=== PATIENT | female | born 1980 | race American Indian/Alaskan Native ===

== ENCOUNTER 2018-03-16 06:36 | Emergency (ER) | payer SELFPAY ==
[2018-03-16 07:27] VITALS: BP 149/100
--- NOTE | 2018-03-16 08:13 | Emergency Department Report ---
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 Pain is 4-10 and worse with swallowing. Denies any drooling. Blood pressure is 149/100 without any history of hypertension. She does have a history of asthma. Denies any nausea or vomiting. Reports some fever and she took [id number] cough and cold without any relief. Denies any chest pain or shortness of breath. Denies any earache or headache. Denies any abdominal pain. Last menstrual period was . She has drainage to the back of her throat that she says is worse when she lays down and she coughs a lot at night when she lays down. ED Review of Systems ROS: Stated complaint: SORE THROAT Other details as noted in HPI Constitutional: chills, fever Eyes: denies: eye pain, eye discharge ENT: throat pain, congestion. denies: ear pain, dental pain Respiratory: cough. denies: shortness of breath, SOB with exertion, SOB at rest , stridor, wheezing Cardiovascular: denies: chest pain, palpitations, edema, syncope Gastrointestinal: denies: abdominal pain, nausea, vomiting, diarrhea Genitourinary: denies: urgency, dysuria, frequency, hematuria, discharge Musculoskeletal: denies: back pain, joint swelling, arthralgia Skin: denies: rash, lesions Neurological: denies: headache, weakness, paresthesias ED Past Medical Hx - Past Medical History Previous Medical History?: Yes Hx Asthma: Yes - Surgical History Past Surgical History?: No Additional Surgical History: CS - Family History Family history: hypertension - Social History Smoking Status: Never Smoker Substance Use Type: None - Medications Home Medications: Home Medications Medication Instructions Recorded Confirmed Last Taken Type Azithromycin [Zithromax Z-JAUN] 250 mg PO DAILY #6 tablet 10/19/14 Unknown Rx predniSONE [Prednisone] 40 mg PO DAILY #10 tablet 10/19/14 Unknown Rx Albuterol Sulfate [Ventolin HFA] 2 puff IH Q4H PRN #1 hfa.aer.ad 01/29/15 Unknown Rx Cetirizine HCl [Allergy Relief] 10 mg PO DAILY #60 tablet 01/29/15 Unknown Rx Fluticasone [Flonase] 1 spray NS QDAY #1 bottle 01/29/15 Unknown Rx Prednisone [predniSONE 10 mg 10 mg PO .TAPER #1 tab.ds.pk 01/29/15 Unknown Rx (6-Day Pack, 21 Tabs)] Amoxicillin [Amoxicillin TAB] 875 mg PO BID 10 Days #20 tablet 03/16/18 Unknown Rx Cetirizine HCl [ZyrTEC] 10 mg PO QAM 14 Days #14 capsule 03/16/18 Unknown Rx Fluticasone [Flonase] 1 spray NS QDAY 14 Days #1 bottle 03/16/18 Unknown Rx Ibuprofen [Motrin] 600 mg PO Q8H PRN #12 tablet 03/16/18 Unknown Rx Minor Respiratory Exam - Exam General: Vital signs noted. No distress. Alert and acting appropriately. This is a 37-year-old female well-nourished well-developed in no acute distress HEENT: Yes Moist Mucous Membranes, Yes Rhinorrhea (nasal congestion and pale boggy mucosa), No Pharyngeal Erythema (no pharyngeal exudate or erythema.), No Pharyngeal Exudates (uvula is midline and oral airways patent.), No Conjuctival Injection, No Frontal Tenderness, No Maxillary Tenderness Ear: Neither TM Bulge (bilateral TM congested without erythema), Neither TM Erythema, Neither EAC Pain, Neither EAC Discharge Neck: Yes Supple (full range of motion. Supple), No Adenopathy Lungs: Yes Good Air Exchange (clear to auscultation bilaterally.), Yes Cough ( dry cough), No Wheezes, No Ronchi, No Stridor, No Labored Respirations, No Retractions, No Use of Accessory Muscles, No Other Abnormal Lung Sounds Heart: Yes Regular, No Murmur Abdomen: Yes Normal Bowel Sounds, No Tenderness (nontender the palpation in all quadrants), No Peritoneal Signs Skin: No Rash, No Edema Neurologic: Alert and oriented 3, GCS of 15, almost gait Musculoskeletal: Unremarkable. No cce. + 2 pulses in all extremities, no neurovascular compromise ED Course Vital Signs 03/16/18 07:23 Temperature 99 F Pulse Rate 94 H Respiratory 18 Rate Blood Pressure 149/100 O2 Sat by Pulse 99 Oximetry - Reevaluation(s) Reevaluation #1: 03/16/18 08:14 She given Motrin 800 mg emergency room to manage low-grade fever and sore throat. ED Medical Decision Making - Medical Decision Making This is a 37-year-old female here report that she is having sore throats that started 3 days ago but was preceded by upper respiratory infection to include nasal congestion and runny nose. Patient has a history of asthma. Assessment/plan rhinitis: Patient will be sent home in Zyrtec and Flonase Sinusitis-patient will be sent home on amoxicillin Pharyngitis-Motrin 800 mg by mouth in emergency room and will be sent home and Motrin. Pain is better elevated blood pressure with no history of hypertension-encouraged to keep a log of her blood pressure and take to PCP visit with her Patient discharged home in stable condition with prescription for Zyrtec, Flonase and amoxicillin. She was also given Motrin for fever or sore throat. I discussed with her that she is to follow-up with her primary care physician in 2-3 days if she does not have a primary care to follow up with outside Medical Center. Patient blood pressure is 149/100 and she says she does not have a history of high blood pressure but she does have a family history side told her to keep a record of her blood pressure and take to primary care visit with her for evaluation and she agrees. Discharged home in stable condition. Sore throat is better Critical care attestation.: If time is entered above; I have spent that time in minutes in the direct care of this critically ill patient, excluding procedure time. ED Disposition Clinical Impression: Elevated blood-pressure reading without diagnosis of hypertension Sinusitis Qualifiers: Sinusitis location: unspecified location Chronicity: unspecified Qualified Code (s): J32.9 - Chronic sinusitis, unspecified Rhinitis Qualifiers: Rhinitis type: unspecified Qualified Code(s): J31.0 - Chronic rhinitis Pharyngitis Qualifiers: Pharyngitis/tonsillitis etiology: unspecified etiology Qualified Code(s): J02.9 - Acute pharyngitis, unspecified Disposition: DC-01 TO HOME OR SELFCARE Is pt being admited?: No Does the pt Need Aspirin: No Condition: Stable Instructions: Sinusitis (ED), Allergic Rhinitis (ED), Pharyngitis (ED), Hypertension (ED) Additional Instructions: Please take antibiotic as prescribed Follow-up with primary care physician in 2-3 days and if he do not have a primary care physician follow-up at [facility]. Keep a log of your blood pressure since it was a little elevated today and take to primary care physician visit If your condition worsens to include difficulty breathing, swallowing, chest pain, nausea and vomiting and fever, please return to the emergency room NATHAN. Take Zyrtec and Flonase to relieve congestion Increasing fluid intake Use nasal saline wash to flush and nostrils. Referrals: PRIMARY CARE, [Primary Care Provider] - 2-3 Days [facility] [Outside] - 2-3 Days Forms: Work/School Release Form(ED)
== END 2018-03-16 08:34 | disposition home or self-care (01) ==
LOC: ED 06:36
DX: J32.9 Chronic sinusitis, unspecified (principal); J31.0 Chronic rhinitis; J20.9 Acute bronchitis, unspecified; R03.0 Elevated blood-pressure reading, without diagnosis of hypertension; J45.909 Unspecified asthma, uncomplicated
CPT/HCPCS: 99282

== ENCOUNTER 2020-10-06 00:42 | Emergency (ER) | payer SELFPAY ==
[2020-10-06 02:41] VITALS: BP 152/78
--- NOTE | 2020-10-06 02:41 | Emergency Department Report ---
ED General Adult HPI - General Stated complaint: SORE THROAT - History of Present Illness Initial comments: Patient is a 40-year-old -[place] female with a history of asthma presents to the ED with complaint of acute onset persistent nasal and sinus congestion, sore throat, dysphagia and frontal sinus pressure for the last 2 days. Patient states that she has not been able to eat anything in the last 8 hours because of worsening sore throat and dysphagia. Patient denies fever, chills, nausea, vomiting, dizziness, syncope, chest pain, shortness of breath, cough, neck pain, headache, change in vision, abdominal pain, dysuria, urinary frequency and urgency or back pain. MD Complaint: Sore throat, dysphagia -: Sudden, days(s) (2) Location: mouth Radiation: non-radiation Severity scale (0 -10): 7 Quality: aching, sharp Consistency: constant Improves with: none Worsens with: eating Associated Symptoms: denies other symptoms. denies: confusion, chest pain, cough, diaphoresis, fever/chills, loss of appetite, malaise, nausea/vomiting, rash, seizure, shortness of breath, syncope, weakness Treatments Prior to Arrival: none - Related Data Previous Rx's Medication Instructions Recorded Last Taken Type predniSONE [Prednisone] 40 mg PO DAILY #10 tablet 10/19/14 Unknown Rx Albuterol Sulfate [Ventolin HFA] 2 puff IH Q4H PRN #1 hfa.aer.ad 01/29/15 Unknown Rx Cetirizine HCl [Allergy Relief] 10 mg PO DAILY #60 tablet 01/29/15 Unknown Rx Fluticasone [Flonase] 1 spray NS QDAY #1 bottle 01/29/15 Unknown Rx Prednisone [predniSONE 10 mg 10 mg PO .TAPER #1 tab.ds.pk 01/29/15 Unknown Rx (6-Day Pack, 21 Tabs)] Amoxicillin [Amoxicillin TAB] 875 mg PO BID 10 Days #20 tablet 03/16/18 Unknown Rx Cetirizine HCl [ZyrTEC] 10 mg PO QAM 14 Days #14 capsule 03/16/18 Unknown Rx Fluticasone [Flonase] 1 spray NS QDAY 14 Days #1 bottle 03/16/18 Unknown Rx Azithromycin [Zithromax Z-JAUN] 250 mg PO DAILY #6 tablet 10/06/20 Unknown Rx Ibuprofen [Motrin 600 MG tab] 600 mg PO Q8H PRN #30 tablet 10/06/20 Unknown Rx Lidocaine Viscous 2% 10 ml PO Q6H PRN #120 ml 10/06/20 Unknown Rx predniSONE [Deltasone] 40 mg PO QDAY #10 tab 10/06/20 Unknown Rx Allergies Allergy/AdvReac Type Severity Reaction Status Date / Time No Known Allergies Allergy Verified 01/29/15 02:40 ED Review of Systems ROS: Stated complaint: SORE THROAT Other details as noted in HPI Constitutional: denies: chills, fever Eyes: denies: eye pain, eye discharge, vision change ENT: throat pain (sore throat, dysphagia), congestion. denies: ear pain Respiratory: denies: cough, shortness of breath, wheezing Cardiovascular: denies: chest pain, palpitations Endocrine: no symptoms reported Gastrointestinal: denies: abdominal pain, nausea, diarrhea Genitourinary: denies: urgency, dysuria, discharge Musculoskeletal: denies: back pain, joint swelling, arthralgia Skin: denies: rash, lesions Neurological: denies: headache, weakness, paresthesias Psychiatric: denies: anxiety, depression Hematological/Lymphatic: denies: easy bleeding, easy bruising ED Past Medical Hx - Past Medical History Hx Asthma: Yes - Surgical History Additional Surgical History: CS - Social History Smoking Status: Never Smoker Substance Use Type: None - Medications Home Medications: Home Medications Medication Instructions Recorded Confirmed Last Taken Type predniSONE [Prednisone] 40 mg PO DAILY #10 tablet 10/19/14 Unknown Rx Albuterol Sulfate [Ventolin HFA] 2 puff IH Q4H PRN #1 hfa.aer.ad 01/29/15 Unknown Rx Cetirizine HCl [Allergy Relief] 10 mg PO DAILY #60 tablet 01/29/15 Unknown Rx Fluticasone [Flonase] 1 spray NS QDAY #1 bottle 01/29/15 Unknown Rx Prednisone [predniSONE 10 mg 10 mg PO .TAPER #1 tab.ds.pk 01/29/15 Unknown Rx (6-Day Pack, 21 Tabs)] Amoxicillin [Amoxicillin TAB] 875 mg PO BID 10 Days #20 tablet 03/16/18 Unknown Rx Cetirizine HCl [ZyrTEC] 10 mg PO QAM 14 Days #14 capsule 03/16/18 Unknown Rx Fluticasone [Flonase] 1 spray NS QDAY 14 Days #1 bottle 03/16/18 Unknown Rx Azithromycin [Zithromax Z-JAUN] 250 mg PO DAILY #6 tablet 10/06/20 Unknown Rx Ibuprofen [Motrin 600 MG tab] 600 mg PO Q8H PRN #30 tablet 10/06/20 Unknown Rx Lidocaine Viscous 2% 10 ml PO Q6H PRN #120 ml 10/06/20 Unknown Rx predniSONE [Deltasone] 40 mg PO QDAY #10 tab 10/06/20 Unknown Rx ED Physical Exam - General General appearance: alert, in no apparent distress - Head Head exam: Present: atraumatic, normocephalic, normal inspection - Eye Eye exam: Present: normal appearance, PERRL, EOMI Pupils: Present: normal accommodation - ENT ENT exam: Present: mucous membranes moist, TM's normal bilaterally, normal external ear exam, other (Erythematous oropharynx and tonsils with mild left tonsillar exudates) - Neck Neck exam: Present: normal inspection, full ROM, lymphadenopathy - Respiratory Respiratory exam: Present: normal lung sounds bilaterally. Absent: respiratory distress, wheezes, rales, rhonchi, chest wall tenderness, accessory muscle use, decreased breath sounds, prolonged expiratory - Cardiovascular Cardiovascular Exam: Present: regular rate, normal rhythm, normal heart sounds. Absent: systolic murmur, diastolic murmur, rubs, gallop - GI/Abdominal GI/Abdominal exam: Present: soft, normal bowel sounds. Absent: tenderness, guarding, rebound, hyperactive bowel sounds, hypoactive bowel sounds - Extremities Exam Extremities exam: Present: normal inspection, full ROM, normal capillary refill - Back Exam Back exam: Present: normal inspection, full ROM. Absent: tenderness, CVA tenderness (R), CVA tenderness (L), muscle spasm, paraspinal tenderness, vertebral tenderness - Neurological Exam Neurological exam: Present: alert, oriented X3, CN II-XII intact, normal gait, reflexes normal - Psychiatric Psychiatric exam: Present: normal affect, normal mood - Skin Skin exam: Present: warm, dry, intact, normal color. Absent: rash ED Course Vital Signs 10/06/20 02:40 Temperature 98.4 F Pulse Rate 86 Respiratory 18 Rate Blood Pressure 152/78 [Left] O2 Sat by Pulse 100 Oximetry ED Medical Decision Making - Medical Decision Making This is a 40-year-old -[place] female with a history of asthma presents to the ED with complaint of acute onset persistent nasal and sinus congestion, sore throat, dysphagia and frontal sinus pressure for the last 2 days. Patient states that she has not been able to eat anything in the last 8 hours because of worsening sore throat and dysphagia. In the ED, patient is alert and oriented x3 and is not in any distress. Patient the history and physical exam findings, the patient was discharged home on medications and advised to follow-up with her primary care physician in 5 to 7 days for reevaluation. Patient was therefore advised to return to the ED immediately if symptoms get worse. - Differential Diagnosis Strep pharyngitis; tonsillitis; viral pharyngitis; URI Critical care attestation.: If time is entered above; I have spent that time in minutes in the direct care of this critically ill patient, excluding procedure time. ED Disposition Clinical Impression: Acute pharyngitis, unspecified Qualifiers: Pharyngitis/tonsillitis etiology: other specified organisms Qualified Code(s): J02.8 - Acute pharyngitis due to other specified organisms Acute tonsillitis, unspecified Qualifiers: Pharyngitis/tonsillitis etiology: other specified organisms Qualified Code(s): J03.80 - Acute tonsillitis due to other specified organisms Disposition: DC- TO HOME OR SELFCARE Is pt being admited?: No Does the pt Need Aspirin: No Condition: Stable Instructions: Tonsillitis, [id number], Pharyngitis, [id number] Additional Instructions: Your symptoms are likely due to acute pharyngitis consistent with streptococcal pharyngitis or tonsillitis. Therefore take medication with food, drink plenty of fluids and follow-up with your primary care physician in 5 to 7 days for reevaluation. Return to the ED immediately if symptoms get worse. Prescriptions: predniSONE [Deltasone] 40 mg PO QDAY #10 tab Lidocaine Viscous 2% 10 ml PO Q6H PRN #120 ml PRN Reason: Sore Throat Ibuprofen [Motrin 600 MG tab] 600 mg PO Q8H PRN #30 tablet PRN Reason: Pain Azithromycin [Zithromax Z-JAUN] 250 mg PO DAILY #6 tablet Referrals: [facility] [Provider Group] - 3-5 Days Forms: Work/School Release Form(ED) Time of Disposition: :38 Print Language: SWEDISH
== END 2020-10-06 03:14 | disposition home or self-care (01) ==
LOC: ED 00:42
DX: J03.90 Acute tonsillitis, unspecified (principal); J45.909 Unspecified asthma, uncomplicated; Z79.899 Other long term (current) drug therapy
CPT/HCPCS: 99282

== ENCOUNTER 2021-10-04 15:34 | Emergency (ER) | payer BC, MEDICAID ==
--- NOTE | 2021-10-04 19:03 | Emergency Department Report ---
ED General Adult HPI - General Chief complaint: High BP Stated complaint: HBP/RER BY HEALTH DEPARTMENT Source: patient Mode of arrival: Ambulatory Limitations: No Limitations - History of Present Illness Initial comments: Patient is a A2 41-year-old -[place] female who is approximately 8 weeks gestation and who has a past medical history of uncontrolled hypertension who presents to the ED with complaint of acute onset persistently elevated high blood pressure. Patient states that she went to an urgent care clinic and when they checked her vital signs her blood pressure was significantly elevated and she was advised to come to the ED for evaluation. Patient denies abdominal pain, headache, dizziness, syncope, chest pain, nausea and vomiting, change in vision, vaginal bleeding, dysuria, urinary frequency and urgency, neck pain, fever and chills. MD Complaint: ELEVATED BP and -: Gradual, year(s) (6) Radiation: non-radiation Severity scale (0 -10): 0 Consistency: constant Improves with: none Worsens with: none Associated Symptoms: denies other symptoms. denies: confusion, chest pain, cough, diaphoresis, fever/chills, headaches, loss of appetite, malaise, nausea/vomiting, rash, seizure, shortness of breath, syncope, weakness Treatments Prior to Arrival: none - Related Data Previous Rx's Medication Instructions Recorded Last Taken Type predniSONE [Prednisone] 40 mg PO DAILY #10 tablet 10/19/14 Unknown Rx Albuterol Sulfate [Ventolin HFA] 2 puff IH Q4H PRN #1 hfa.aer.ad 01/29/15 Unknown Rx Cetirizine HCl [Allergy Relief] 10 mg PO DAILY #60 tablet 01/29/15 Unknown Rx Fluticasone [Flonase] 1 spray NS QDAY #1 bottle 01/29/15 Unknown Rx Prednisone [predniSONE 10 mg 10 mg PO .TAPER #1 tab.ds.pk 01/29/15 Unknown Rx (6-Day Pack, 21 Tabs)] Amoxicillin [Amoxicillin TAB] 875 mg PO BID 10 Days #20 tablet 03/16/18 Unknown Rx Cetirizine HCl [ZyrTEC] 10 mg PO QAM 14 Days #14 capsule 03/16/18 Unknown Rx Fluticasone [Flonase] 1 spray NS QDAY 14 Days #1 bottle 03/16/18 Unknown Rx Azithromycin [Zithromax Z-JAUN] 250 mg PO DAILY #6 tablet 04/23/21 Unknown Rx Ibuprofen [Motrin 600 MG tab] 600 mg PO Q8H PRN #30 tablet 10/06/20 Unknown Rx Lidocaine Viscous 2% 10 ml PO Q6H PRN #120 ml 10/06/20 Unknown Rx predniSONE [Deltasone] 40 mg PO QDAY #10 tab 10/06/20 Unknown Rx NIFEdipine [Nifedipine ER] 60 mg PO DAILY #30 tab 10/04/21 Unknown Rx Allergies Allergy/AdvReac Type Severity Reaction Status Date / Time No Known Allergies Allergy Verified 01/29/15 02:40 ED Review of Systems ROS: Stated complaint: HBP/RER BY HEALTH DEPARTMENT Other details as noted in HPI Constitutional: other (Elevated blood pressure). denies: chills, fever Eyes: denies: eye pain, eye discharge, vision change ENT: denies: ear pain, throat pain Respiratory: denies: cough, shortness of breath, wheezing Cardiovascular: denies: chest pain, palpitations Endocrine: no symptoms reported Gastrointestinal: denies: abdominal pain, nausea, vomiting, diarrhea Genitourinary: denies: urgency, dysuria, discharge Musculoskeletal: denies: back pain, joint swelling, arthralgia Skin: denies: rash, lesions Neurological: denies: headache, weakness, paresthesias Psychiatric: denies: anxiety, depression Hematological/Lymphatic: denies: easy bleeding, easy bruising ED Past Medical Hx - Past Medical History Hx Hypertension: Yes Hx Asthma: Yes - Surgical History Additional Surgical History: CS - Social History Smoking Status: Never Smoker Substance Use Type: None - Medications Home Medications: Home Medications Medication Instructions Recorded Confirmed Last Taken Type predniSONE [Prednisone] 40 mg PO DAILY #10 tablet 10/19/14 Unknown Rx Albuterol Sulfate [Ventolin HFA] 2 puff IH Q4H PRN #1 hfa.aer.ad 01/29/15 Unknown Rx Cetirizine HCl [Allergy Relief] 10 mg PO DAILY #60 tablet 01/29/15 Unknown Rx Fluticasone [Flonase] 1 spray NS QDAY #1 bottle 01/29/15 Unknown Rx Prednisone [predniSONE 10 mg 10 mg PO .TAPER #1 tab.ds.pk 01/29/15 Unknown Rx (6-Day Pack, 21 Tabs)] Amoxicillin [Amoxicillin TAB] 875 mg PO BID 10 Days #20 tablet 03/16/18 Unknown Rx Cetirizine HCl [ZyrTEC] 10 mg PO QAM 14 Days #14 capsule 03/16/18 Unknown Rx Fluticasone [Flonase] 1 spray NS QDAY 14 Days #1 bottle 03/16/18 Unknown Rx Azithromycin [Zithromax Z-JAUN] 250 mg PO DAILY #6 tablet 10/06/20 Unknown Rx Ibuprofen [Motrin 600 MG tab] 600 mg PO Q8H PRN #30 tablet 10/06/20 Unknown Rx Lidocaine Viscous 2% 10 ml PO Q6H PRN #120 ml 10/06/20 Unknown Rx predniSONE [Deltasone] 40 mg PO QDAY #10 tab 10/06/20 Unknown Rx NIFEdipine [Nifedipine ER] 60 mg PO DAILY #30 tab 10/04/21 Unknown Rx ED Physical Exam - General Limitations: No Limitations General appearance: alert, in no apparent distress - Head Head exam: Present: atraumatic, normocephalic, normal inspection - Eye Eye exam: Present: normal appearance, PERRL, EOMI Pupils: Present: normal accommodation - ENT ENT exam: Present: normal exam, normal orophraynx, mucous membranes moist, TM's normal bilaterally, normal external ear exam - Neck Neck exam: Present: normal inspection, full ROM. Absent: tenderness - Respiratory Respiratory exam: Present: normal lung sounds bilaterally. Absent: respiratory distress, wheezes, rales, rhonchi, stridor, chest wall tenderness, accessory muscle use, decreased breath sounds, prolonged expiratory - Cardiovascular Cardiovascular Exam: Present: regular rate, normal rhythm, normal heart sounds. Absent: systolic murmur, diastolic murmur, rubs, gallop - GI/Abdominal GI/Abdominal exam: Present: soft, normal bowel sounds. Absent: tenderness, guarding, rebound, hyperactive bowel sounds, hypoactive bowel sounds, org anomegaly, mass, bruit - Extremities Exam Extremities exam: Present: normal inspection, full ROM, normal capillary refill. Absent: tenderness - Back Exam Back exam: Present: normal inspection, full ROM. Absent: tenderness, CVA tenderness (R), CVA tenderness (L), muscle spasm, paraspinal tenderness, vertebral tenderness - Neurological Exam Neurological exam: Present: alert, oriented X3, CN II-XII intact, normal gait, reflexes normal - Psychiatric Psychiatric exam: Present: normal affect, normal mood - Skin Skin exam: Present: warm, dry, intact, normal color. Absent: rash ED Course Vital Signs 10/04/21 16:36 Temperature 99.0 F Pulse Rate 74 Respiratory 20 Rate Blood Pressure 169/102 O2 Sat by Pulse 100 Oximetry ED Medical Decision Making - Medical Decision Making This is a A2 41-year-old -[place] female who is approximately 8 weeks gestation and who has a past medical history of uncontrolled hypertension who presents to the ED with complaint of acute onset persistently elevated high blood pressure. Patient states that she went to an urgent care clinic and when they checked her vital signs her blood pressure was significantly elevated and she was advised to come to the ED for evaluation. In the ED, patient is alert and oriented x3 and is not in any distress. Patient is approximately 8 weeks gestation, and has a past medical history of uncontrolled hypertension and is not on any medications. Patient was discharged home on nifedipine 60 mg daily and was advised to follow-up with her [facility] physician in 5 to 7 days for reevaluation or return to the ED immediately if symptoms get worse. - Differential Diagnosis Uncontrolled hypertension; Critical care attestation.: If time is entered above; I have spent that time in minutes in the direct care of this critically ill patient, excluding procedure time. ED Disposition Clinical Impression: Uncontrolled stage 2 hypertension Hypertension affecting Qualifiers: Trimester: first trimester Qualified Code(s): O16.1 - Unspecified maternal hypertension, first trimester Disposition: HOME / SELF CARE / HOMELESS Is pt being admited?: No Does the pt Need Aspirin: No Condition: Stable Instructions: Hypertension (ED), Hypertension During , [id number], Hypertension, Adult, [id number], Managing Your Hypertension Additional Instructions: Take medication with food, drink plenty of fluids and follow-up with your [facility] physician in 5 to 7 days for reevaluation or return to the ED immediately if symptoms get worse. Prescriptions: NIFEdipine [Nifedipine ER] 60 mg PO DAILY #30 tab Referrals: KAROL MILLARD MD [Staff Physician] - 3-5 Days Time of Disposition: 19:01 Print Language: MONGOLIAN
[2021-10-04 19:59] VITALS: BP 173/99
== END 2021-10-04 19:59 | disposition home or self-care (01) ==
LOC: ED 15:34
DX: O16.1 Unspecified maternal hypertension, first trimester (principal); O13.1 Gestational [pregnancy-induced] hypertension without significant proteinuria, first trimester; Z3A.01 Less than 8 weeks gestation of pregnancy
CPT/HCPCS: 99282